=== PATIENT | female | born 1955 | race Caucasian/White ===

== ENCOUNTER 2024-08-04 04:34 | Day surgery (SDC) | payer OTHER ==
[2024-07-20 14:12] VITALS: BMI 28.9
[2024-08-04 08:32] VITALS: TEMP 97.7
[2024-08-04 08:41] VITALS: PULSE 74
[2024-08-04 09:05] VITALS: BP 126/62; RESP 16
== END 2024-08-04 09:47 | disposition home or self-care (01) ==
LOC: JASU-ENDO 04:34
PROVIDERS: ATTEND Internal Medicine Gastroenterology
PROC: 0DBN8ZX Excision of Sigmoid Colon, Via Natural or Artificial Opening Endoscopic, Diagnostic (ICD-10-PCS; 2024-08-04)
PROC: 0DBP8ZX Excision of Rectum, Via Natural or Artificial Opening Endoscopic, Diagnostic (ICD-10-PCS; 2024-08-04)
PROC: 0DBH8ZX Excision of Cecum, Via Natural or Artificial Opening Endoscopic, Diagnostic (ICD-10-PCS; principal; 2024-08-04 08:00)
DX: Z12.11 Encounter for screening for malignant neoplasm of colon (principal); D12.0 Benign neoplasm of cecum; D12.5 Benign neoplasm of sigmoid colon; D12.8 Benign neoplasm of rectum
CPT/HCPCS: 82962; 88305-TC